=== PATIENT | male | born 1940 | race Caucasian/White ===

== ENCOUNTER → 2017-01-23 | Day surgery (SDC) | payer MEDICARE ==
[~2017-01-23] MED LIST: GLUCAGON 1 MG/ML VIAL IM STA; GLUCAGON 1 MG/ML VIAL SQ STA
[2017-01-23 10:22] LABS: Basophils # (A) 0.1 k/uL (0-0.2); Basophils % (A) 1 %; CH 28.9; CHCM 31.1; Eosinophils # (A) 0.1 k/uL (0-0.7); Eosinophils % (A) 1 %; HCT 46.7 % (39.0-53.0); HDW 2.26; HGB 14.3 gm/dL (13.0-17.5); Luc % (Auto) 1; Lymphocytes # (A) 0.7 k/uL (1.0-4.8); Lymphocytes % (A) 8 %; MCH 28.6 pg (25.0-35.0); MCHC 30.5 g/dL (31.0-37.0); MCV 93.7 fL (80.0-100.0); Mean Platelet Volume 7.2; Monocytes # (A) 0.5 k/uL (0-1.0); Monocytes % (A) 5 %; Neutrophils # (A) 7.5 k/uL (1.3-7.7); Neutrophils % (A) 84 %; RBC 4.99 m/uL (4.30-5.90); RDW 14.1 % (11.5-15.5); WBC (Perox) 9.27
[2017-01-23 10:26] VITALS: BP 108/65; PULSE 103; RESP 16; TEMP 97.6
[2017-01-23 10:34] LABS: ALT 23 U/L (21-72); AST 26 U/L (17-59); Alkaline Phosphatase 75 U/L (38-126); Anion Gap 13 mmol/L; Blood Urea Nitrogen 16 mg/dL (9-20); Calcium 9.1 mg/dL (8.4-10.2); Carbon Dioxide 24 mmol/L (22-30); Chloride 100 mmol/L (98-107); Glucose 71 mg/dL (74-99); Non-African American GFR(MDRD) 59 (>60 ml/min/1.73 sqM); Potassium 4.5 mmol/L (3.5-5.1); Sodium 137 mmol/L (137-145); Total Bilirubin 0.8 mg/dL (0.2-1.3); Total Protein 6.4 g/dL (6.3-8.2)
[2017-01-23 11:20] LABS: Erythrocyte Sedimentation Rate 14 mm/hr (0-15)
--- NOTE | 2017-02-03 12:34 | MR ---
EXAMINATION TYPE: MR Enterography DATE OF EXAM: 01/23/2017 COMPARISON: Outside CT and abdomen study July 11, 2016 HISTORY: Crohn's Disease CONTRAST: Standard multiplanar, multisequence imaging of the abdomen is performed without and with IV contrast, patient is injected with 5.5 mL intravenous Gadavist gadolinium contrast. Oral Volumen and Water was given as per enterography protocol. FINDINGS: Exam is noted suboptimal as patient has very little intra-abdominal fat. In addition there is motion artifact degradation present. BOWEL: Stomach show satisfactory distention without suspicious wall thickening. Duodenal sweep is les s well visualized and thus suboptimally evaluated. There is fairly satisfactory distention of small b owel loops throughout the mid to lower abdomen. There is concentric area of moderate wall thickening involving distal ileal loop in the right lower quadrant seen best on coronal series 201 images 3 thro ugh 8. There is no suspicious mural enhancement at this level to suggest active inflammation however. There is additional segment of mild to moderate wall thickening involving small bowel loops in the r ight lower quadrant. This shows slightly more prominent mucosal enhancement pattern typical small bow el, active inflammation at this level cannot be excluded seen best image 95 series 701, this is at le javed of terminal ileum or neoterminal ileum. There is satisfactory fluid distention of visualized port ion of proximal to mid colon without significant wall thickening. There is satisfactory fluid distent ion of rectum without suspicious wall thickening. Left and sigmoid colon are poorly distended and sergo s suboptimally evaluated. 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 There is redemonstration significant plaque in th e right common iliac artery. Multiple simple appearing cysts scattered throughout both kidneys are redemonstrated. Gallbladder is not visualized and presumed surgically absent. There is moderate joint space loss in both hips. There is narrowing and sclerosis of both sacroiliac joints. There is 4.5 cm round structure left upper quadrant perhaps residual spleen or splenule seen best ser ies 301 image 41. Pancreatic duct is atrophic with prominent duct, finding is consistent with chronic pancreatitis as s een on CT, calcifications are better appreciated on CT. IMPRESSION: There are 2 levels of stricturing in distal ileal loops in the right lower quadrant, ther e is mild active inflammatory change involving terminal ileum or neoterminal ileum.
== END ==
LOC: RADMRIMAIN 09:35
PROVIDERS: ATTEND Internal Medicine Gastroenterology
DX: K50.00 Crohn's disease of small intestine without complications (principal); I71.4 Abdominal aortic aneurysm, without rupture; I74.5 Embolism and thrombosis of iliac artery; R63.4 Abnormal weight loss; F17.200 Nicotine dependence, unspecified, uncomplicated; Z90.49 Acquired absence of other specified parts of digestive tract; Z79.899 Other long term (current) drug therapy
CPT/HCPCS: 80053; 85652; 85025; 86140; 72197; 74183; J1610; A9581